=== PATIENT | male | born 1955 | race Hispanic/Latino ===

== ENCOUNTER 2018-06-08 12:53 | Emergency (ER) | payer SELFPAY ==
[~2018-06-08] VITALS: Ht 170.2 cm; Wt 82.6 kg
[2018-06-08] MEDS ORDERED: ONDANSETRON HCL INJ 2 MG/ML VIAL IV STA (13:08)
[2018-06-08] MEDS ORDERED: MECLIZINE HCL 12.5 MG TAB PO ONE (13:15)
[2018-06-08] MEDS ORDERED: SODIUM CHLORIDE 0.9% 1000ML 1,000 ML IV SCH (13:15)
[2018-06-08 14:02] VITALS: BP 130/77
== END 2018-06-08 14:14 | disposition home or self-care (01) ==
LOC: FSED 12:53
DX: R42 Dizziness and giddiness (principal); H81.11 Benign paroxysmal vertigo, right ear
CPT/HCPCS: 80053; 81003; 82553; 84484; 85025; 99283; J2405; J7030

== ENCOUNTER 2018-12-19 12:04 | Emergency (ER) | payer MEDICARE ==
[~2018-12-19] VITALS: Ht 170.2 cm; Wt 82.6 kg
--- NOTE | 2018-12-19 13:27 | NUR ---
UPDATED PT AND FAMILY
--- NOTE | 2018-12-19 13:51 | Diagnostic Imaging Report ---
EXAM: CT Abdomen and pelvis with contrast INDICATION: Right upper quadrant pain. COMPARISON: None. TECHNIQUE: Abdomen and pelvis was scanned utilizing a multidetector helical scanner from the lung base to the pubic symphysis after administration of IV contrast. Coronal and sagittal reformations were obtained. Routine protocol was performed. Scan was performed when during portal venous phase. IV CONTRAST: 100 cc of Isovue 370 ORAL CONTRAST: Water RADIATION DOSE: Total DLP: 828.9 mGy*cm Dose modulation, iterative reconstruction, and/or weight based adjustment of the mA/kV was utilized to reduce the radiation dose to as low as reasonably achievable. COMPLICATIONS: None FINDINGS: LINES and TUBES: None. LOWER THORAX: Unremarkable HEPATOBILIARY: Diffuse mild fatty liver. No focal hepatic lesions. No biliary ductal dilation. GALLBLADDER: No radio-opaque stones or sludge. No wall thickening. SPLEEN: No splenomegaly. PANCREAS: No focal masses or ductal dilatation. ADRENALS: No adrenal nodules KIDNEYS/URETERS: There is moderate right perinephric stranding. There is mild right hydronephrosis and proximal hydroureter. There is a 4 mm proximal right ureteral stone. GI TRACT: No abnormal distention, wall thickening, or evidence of bowel obstruction. There is a radiopaque density within the hepatic flexure, likely representing ingested material. LYMPH NODES: No lymphadenopathy. VESSELS: Scattered atherosclerotic changes of the abdominal aorta and branch vessels. PERITONEUM / RETROPERITONEUM: No free air or fluid. BONES/SOFT TISSUES: No acute osseous abnormality. No suspicious lytic or blastic lesions. IMPRESSION: Obstructive 4 mm right proximal ureteral stone with mild right hydronephrosis and hydroureter and perinephric stranding. Diffuse mild fatty liver. Signed by: Dr. Kimberly Cruz MD on 12/19/2018 1:48 PM
[2018-12-19] MEDS ORDERED: ONDANSETRON HCL INJ 2MG/ML 2ML 2 MG/ML VIAL IV STA (14:12)
[2018-12-19] MEDS ORDERED: MORPHINE SULFATE 2 MG/ML SYR 1ML IV STA (14:12)
[2018-12-19] MEDS ORDERED: KETOROLAC TROMETHAMINE 30 MG/ML VIAL IV NR (14:15)
[2018-12-19] MEDS ORDERED: SODIUM CHLORIDE 0.9% 1000ML 1,000 ML IV SCH ×2 (14:15)
[2018-12-19] MEDS ORDERED: IOPAMIDOL 370 MG/ML 50ML INFUS..BTL INJ ONE (17:00)
== END 2018-12-19 14:57 | disposition home or self-care (01) ==
LOC: FSED 12:04
DX: N20.1 Calculus of ureter (principal)
CPT/HCPCS: 74177; 80048; 80076; 81003; 85025; 99284; J2270; J2405; Q9967